=== PATIENT | male | born 1995 | race Caucasian/White ===

== ENCOUNTER 2023-01-26 08:57 | Outpatient (RCR) | payer OTHER, BC, SELFPAY | END 2023-05-26 23:59 | disposition home or self-care (01) | PROVIDERS: PCP Family Medicine; Visit Provider Nurse Practitioner Family | DX: M54.50 Low back pain, unspecified (principal); Z51.89 Encounter for other specified aftercare | CPT/HCPCS: 97161 ==

== ENCOUNTER 2023-04-06 11:24 | Outpatient (CLI) | payer BC, SELFPAY | END 2023-04-06 11:25 | disposition home or self-care (01) | LOC: NFLDREF 04-09 09:49 | PROVIDERS: PCP Family Medicine; Referring Provider Family Medicine; Visit Provider Family Medicine | DX: R79.89 Other specified abnormal findings of blood chemistry (principal); K76.0 Fatty (change of) liver, not elsewhere classified; Z79.899 Other long term (current) drug therapy | CPT/HCPCS: 80061; 80076; 82306 ==

== ENCOUNTER 2024-05-15 09:39 | Outpatient (CLI) | payer BC, SELFPAY | END 2024-05-15 09:40 | disposition home or self-care (01) | PROVIDERS: PCP Family Medicine; Visit Provider Family Medicine | DX: E78.00 Pure hypercholesterolemia, unspecified (principal); R79.89 Other specified abnormal findings of blood chemistry; R93.5 Abnormal findings on diagnostic imaging of other abdominal regions, including retroperitoneum; F41.9 Anxiety disorder, unspecified | CPT/HCPCS: 80053; 80061; 82306; 83690 ==